=== PATIENT | male | born 1935 | race Caucasian/White ===

== ENCOUNTER 2024-08-03 13:47 | Observation (INO) | payer OTHER, SELFPAY ==
[2024-08-03] VITALS (9 sets, daily range): BP systolic 130–181; BP diastolic 69–97; BMI 25.2; BMI 25.9
[2024-08-03 10:09] LABS: Glucose - Point of Care 137 mg/dl (70-99)
--- NOTE | 2024-08-03 10:35 | PTCARENOTE ---
Pt came to ER with c/o B/L hand numbness, Right Facial numbness, expressive aphasia and Right facial droop. Symptoms started around 0830 this morning at home while making breakfast. Right facial droop and expressive aphasia have resolved at this
point. Pt remains with B/L hand numbness and Right facial numbness remain. NIH- 2. Stroke alert called at 1035. Neurology bedside in CT Scan. Will continue to monitor.
--- NOTE | 2024-08-03 10:39 | ED.CVA ---
History of Present Illness
General
Chief Complaint: CVA/TIA Symptoms
Source: patient and family
Exam Limitations: none
Time Seen by Provider: 08/03/24 10:23
Nursing documentation reviewed up to this point in time: agreed with
Onset of Stroke Symptoms
Onset of symptoms known: Yes
Date of onset of symptoms: 08/03/24
Time of onset of symptoms: 09:00
History of Present Illness
History of Present Illness:
89-year-old male past medical history of heart disease status post multiple stents currently on Plavix presenting to the emergency department today with concerns of right arm weakness and numbness as well as right-sided facial weakness and numbness
that started abruptly with obvious preparing breakfast over the past hour and a half. Also has had some ongoing expressive aphasia. He claims this is still ongoing though his symptoms of his face and right arm have improved significantly.
Past History
Past History
ED Past Medical History: CAD, HTN and Other (Spinal stenosis)
ED Past Surgical History: Cardiac and Urological
Social History
Tobacco: Non-smoker
Living: with family
Employment: Retired
Family History
Family History: Other (Noncontributory)
Review of Systems
Review of Systems
Allergies reviewed?: Yes
All Other Systems: ROS reviewed and negative except as documented in HPI and ROS
Phy Exam
Physical Exam
Physical Exam:
GENERAL: Alert , in no apparent distress
EYE: pupils equal and reactive
NECK: Supple, no significant adenopathy.
ENT: o/p clr, mmm.
CARDIAC: Regular rate and rhythm .
LUNGS: Clear breath sounds bilaterally, no acute respiratory distress, no wheezes/rales/rhonchi
ABDOMEN: Soft, without focal tenderness, no r/g, no cvat
NEUROLOGICAL: Alert and oriented, no focal neuro deficits 5-5 upper and lower extremity strength normal sensation with palpating bilaterally normal finger-nose and [id number]. Patient claims that he has had some difficulty finding words
intermittently during my assessment though he has been fluent with speech.
SKIN: Warm and dry, skin intact.
MUSCULOSKELETAL: No edema, well perfused.
PSYCH: Normal and appropriate interaction.
Course
Orders/Labs/Results
Orders:
Orders
08/03/24 10:36
CT HEAD STROKE ALERT W/o Cont Urgent
Comment:
Reason For Exam: expressive aphasia, right arm weakness
Bedside Glucose- Treatment ONCE
Cardiac Monitoring- Treatment ONCE
08/03/24 10:37
Electrocardiogram (*1) Stat
Reason for Study: Other
Other Reason for Exam: neuro symptoms
EKG- Treatment ONCE
08/03/24 10:44
Complete Blood Count/With Diff Urgent
Comprehensive Metabolic Panel Urgent
PTT Urgent
Prothrombin Time Urgent
Troponin I Urgent
08/03/24 10:48
CT Head & Neck Angio W/wo IV Urgent
Comment:
Reason For Exam: right weakness, expressive aphasia
08/03/24 11:40
Aspirin Chewable [Low Strength Aspirin] 324 mg PO NOW STA
08/03/24 11:47
Aspirin Chewable [Low Strength Aspirin] 324 mg .ROUTE .STK-MED ONE
Abnormal Lab Results
08/03/24 08/03/24
10:08 10:44
WBC 4.5 L 10^3/uL
(4.8-10.8)
RBC 4.54 L 10^6/uL
(4.70-6.10)
Absolute Lymphs (auto) 1.0 L 10^3/uL
(1.2-3.4)
Monocytes % 12.8 H %
(1.7-9.3)
Total Bilirubin 1.4 H mg/dl
(0.2-1.3)
POC Glucose 137 H mg/dl
(70-99)
08/03/24 10:44
08/03/24 10:44
Vital Signs
Initial and Last Documented VS:
Initial Vital Signs
Temp Pulse Resp BP Pulse Ox
97.8 F 86 16 155/91 97
08/03/24 10:02 08/03/24 10:02 08/03/24 10:02 08/03/24 10:02 08/03/24 10:02
Last Documented Vital Signs
Temp Pulse Resp BP Pulse Ox
97.8 F 61 14 178/89 98
08/03/24 10:02 08/03/24 12:15 08/03/24 12:15 08/03/24 12:00 08/03/24 12:15
MDM/Problems Addressed
MDM/Problems Addressed:
89-year-old male presenting to the emergency department today with concerns of expressive aphasia right-sided facial numbness weakness as well as right upper extremity numbness and weakness. Numbness and weakness to the face and right arm have
improved over the past hour but has had ongoing expressive aphasia. No objective findings on examination other than occasional word finding issues. Stroke alert was called concerning ongoing symptoms. Here symptoms further improving labs
unremarkable EKG nonemergent CT and CT angiogram without emergent findings. Case seen by neurology recommending MRI, echo increasing Lipitor to 40 and 21 days of aspirin. Admitted in stable condition.
*Critical Care Note
Total Time (30-74mins, 75-104mins- exclusive of procedures): Not Applicable
ED Attending Note
-
Portions of this chart may have been created with voice recognition software.� Occasional wrong word or��sound alike� substitutions may have occurred due to the inherent limitations of voice recognition software.
Discharge Plan
Departure
Patient Disposition: Admit
Date of Disposition: 08/03/24
Time of Disposition: 12:34
Admit to: Telemetry
Admit to doctor: Michelle
Presentation/result/management discussed w/ accepting MD/DO: Hospitalist
Patient with high blood pressure during this ER visit?: No
Condition: Good
Covid-19: Not Applicable
Discharge Problem:
Right arm weakness, Expressive aphasia
Prescriptions:
No Action
meclizine 12.5 MG tablet
12.5 mg PO DAILYPRN PRN (Reason: vertigo)
clopidogrel [Plavix] 75 MG tablet
75 mg PO DAILY
doxazosin 8 MG tablet
8 mg PO QPM
cholecalciferol (vitamin D3) [Vitamin D3] 125 mcg (5,000 unit) Tablet
125 mcg PO BID
metoprolol tartrate 37.5 mg Tablet
37.5 mg PO BID
atorvastatin [Lipitor] 20 mg Tablet
20 mg PO DAILY
polyethylene glycol 3350 [Miralax] 17 gram Powder In Packet
17 g PO DAILYPRN PRN (Reason: constipation)
pantoprazole [Protonix] 20 mg Tablet,Delayed Release (Dr/Ec)
20 mg PO DAILY
methenamine hippurate [Hiprex] 1 gram Tablet
1 g PO QPM
lisinopril 5 mg Tablet
5 mg PO BID
mesalamine [Canasa] 1,000 mg Suppository
1 g NM DAILYPRN PRN (Reason: flare up)
Referrals:
Oriana Dash DO [Family Provider] -
Interventions
Interventions:
*General Assessment Last Done: 08/03/24 10:59
*ED- Fall Risk Assessment Last Done: 08/03/24 10:59
*ED COVID-19 Vaccine History Last Done: 08/03/24 10:59
ED- Pulmonary Assessment Last Done: 08/03/24 11:05
ED- Neurological Assessment Last Done: 08/03/24 11:05
ED- Cardiac Assessment Last Done: 08/03/24 11:05
ED Swallowing Screen Last Done: 08/03/24 11:31
Discharge Date and Time
Print Language: FAROESE
--- NOTE | 2024-08-03 10:50 | CON.NEURO ---
Neuro Assessment/Plan
Assessment
stroke, unable to localize
presenting with RIGHT face/arm weakness/numbness
Exam showing RIGHT face and LEFT arm minor deficits
CTA head/neck no significant stenosis, bilateral carotid plaque,
continue Plavix 75
Increase Lipitor 40 for now
21 days of aspirin 81
gave patient option of admission, tele, MRI, ECHO vs discharge and follow up with cardiology Holter monitoring, though he will be discharged on the same rx unless we find Afib. patient and family with numerous questions regarding treatment duration,
studies and their timing which were answered - the patient and his family eventually chose admission
Consultation
Order
Date of Consultation: 08/03/24
Requesting Provider: Hank Bill
Reason for Consult: Stroke
Subjective/Objective
Subjective Data
Date of Service: August 03, 2024
89-year-old male past medical history of heart disease status post multiple stents currently on Plavix presenting to the emergency department today with concerns of right arm weakness and numbness as well as right-sided facial weakness and numbness
beginning this AM 8:30. symptoms mild, fluctuating, later developed left arm sensory symptoms.
no bloodthinners
Objective Data
Vital Signs
Temp Pulse Resp BP Pulse Ox
36.6 C 86 16 155/91 97
08/03/24 10:02 08/03/24 10:02 08/03/24 10:02 08/03/24 10:02 08/03/24 10:02
Patient Allergies
Penicillins Allergy (Verified 08/03/24 10:05)
Rash
CVA Assessment
Onset of Stroke Symptoms
Onset of symptoms known: Yes
Date of onset of symptoms: 08/03/24
Time of onset of symptoms: 08:30
NIH Stroke Score
Level of Consciousness: 0 - Alert
LOC Questions: 0-Answers both correctly
LOC Commands: 0-Performs both correctly
Best Horizontal Gaze: 0-Normal
Visual Weinstein: 0=Normal, no visual loss
Facial Palsy: 1=Minor paralysis
Motor - Right Arm: 0=No drift 10 seconds
Motor - Left Arm: 0=No drift 10 seconds
Motor - Right Le-No drift 5 seconds
Motor - Left Le-No drift 5 seconds
Limb Ataxia: 0-Absent
Sensation: 1-Mild loss
Best Language: 0-No aphasia
Dysarthria: 0-Normal
Extinction and Inattention: 0-No abnormality
Total Score:: 2
Physical Exam
-
AAOx3, speech clear, language intact
VFF, EOMI, RIGHT NL flattening, decreased pinprick RIGHT face
full strength on MMT, LEFT pronator drift
Decreased pinprick and vibration LEFT upper ext
Medications
-
Home Medications
�Medication �Instructions �Recorded
clopidogrel 75 mg tablet (Plavix) 75 mg PO DAILY 08/13/21
doxazosin 8 mg tablet 8 mg PO QPM 08/13/21
meclizine 12.5 mg tablet 12.5 mg PO DAILYPRN PRN vertigo 08/13/21
cholecalciferol (vitamin D3) 125 125 mcg PO BID 08/03/24
mcg (5,000 unit) tablet (Vitamin
D3)
metoprolol tartrate 37.5 mg tablet 37.5 mg PO BID 08/03/24
[2024-08-03 11:00] LABS: % Basophils 0.4 % (0-2); % Eosinophils 3.5 % (0-6); % Immature Granulocytes 0.2 % (0-0.5); % Lymphocytes 22.5 % (20.5-51.1); % Monocytes 12.8 % (1.7-9.3); % Neutrophils 60.6 % (42.2-75.2); Absolute Eosinophils 0.2 10^3/uL (0-0.7); Absolute Monocytes 0.6 10^3/uL (0.1-0.6); Absolute Neutrophils 2.7 10^3/uL (1.4-6.5); Hematocrit 40.9 % (39.0-52.0); Hemoglobin 13.8 g/dL (13.0-18.0); Mean Corp Hgb Conc. 33.7 g/dL (33.0-37.0); Mean Corpuscular Hgb 30.4 pg (27.0-31.0); Mean Corpuscular Volume 90.1 fL (80.0-94.0); Mean Platelet Volume 9.8 fL (7.4-10.4); Nucleated Red Blood Cells % 0 % (-); Platelet Count 159 10^3/uL (130-400); Red Blood Cell Count 4.54 10^6/uL (4.70-6.10); Red Cell Dist. Width 13.7 % (11.5-14.5); White Blood Cell Count 4.5 10^3/uL (4.8-10.8)
[2024-08-03 11:05] LABS: PT 13.7 Sec (11.4-14.6)
[2024-08-03 11:06] LABS: APTT 25.7 Sec (23.4-35.0)
[2024-08-03 11:16] LABS: ALT (SGPT) 22 U/L (0-50); AST (SGOT) 25 U/L (17-59); Albumin 3.8 g/dl (3.5-5.0); Alkaline Phosphatase 95 U/L (38-126); Blood Urea Nitrogen 20 mg/dl (9-20); Calcium 9.4 mg/dl (8.4-10.2); Carbon Dioxide 29 mmol/L (22-30); Chloride 107 mmol/L (98-107); Estimated Creatinine Clearance 46 ml/min; Glucose 85 mg/dl (70-99); Sodium 141 mmol/L (135-145); Total Bilirubin 1.4 mg/dl (0.2-1.3); Total Protein 6.8 g/dl (6.3-8.2); eGFR > 60.00
[2024-08-03 11:26] LABS: Troponin I < 0.012 ng/ml
[2024-08-03] MEDS: LOW STRENGTH ASPIRIN 324 MG PO (11:51)
--- NOTE | 2024-08-03 12:59 | HPS.HSE ---
Family Physician
-
Family Physician: Oriana Dash DO
Chief Complaint
-
Right Arm and Facial Numbness
History of Present Illness
Patient is am 89 y/o male past medical history of heart block s/p pacemaker, coronary artery disease s/p stent, hypertension, hyperlipidemia, BPH and ulcerative colitis who presents with right arm and facial numbness. Patient repots while making his
breakfast this morning he developed significant right arm numbness to the point that he could not use his utensils. He reports associated right facial numbness. His symptoms persisted and he called his son, at which time he realized he was also
having trouble with his speech. He reports knowing the words but being able to say them out loud. Upon my evaluation he notes his face still seems a little numb but much improved compared to earlier. He reports prior similar episode about a year
ago at which time he was hospitalized at [facility] for several days. Patient reports another episode at few months after that for which he did not seek medical treatment.
Medical History
Past Medical History
Past Medical History: Reports Other
Additional Past Medical History:
Heart Block s/p Pacemaker
Coronary Artery Disease s/p Stent
Essential Hypertension
Hyperlipidemia
BPH
GERD
Spinal Stenosis
Ulcerative Colitis
Past Surgical History: Reports Other
Additional Past Surgical History:
Cardiac Stents
Bilateral Cataracts
Social History
Tobacco: Former Smoker
Alcohol: None
Living: Alone
Family History
Family History: Not pertinent
Allergies / Home Medications
Allergies reflects when Allergies were last updated in [facility].
Home Medications with original date entered in [facility]
Allergy/Medication List:
Allergies
Allergy/AdvReac Type Severity Reaction Status Date / Time
Penicillins Allergy Rash Verified 08/03/24 10:05
Home Medications
clopidogrel 75 mg tablet (Plavix) 75 mg PO DAILY 08/13/21
doxazosin 8 mg tablet 8 mg PO QPM 08/13/21
meclizine 12.5 mg tablet 12.5 mg PO DAILYPRN PRN vertigo 08/13/21
atorvastatin 20 mg tablet (Lipitor) 20 mg PO DAILY 08/03/24
cholecalciferol (vitamin D3) 125 mcg (5,000 unit) tablet (Vitamin D3) 125 mcg PO BID 08/03/24
lisinopril 5 mg tablet 5 mg PO BID 08/03/24
mesalamine 1,000 mg rectal suppository (Canasa) 1 g IN DAILYPRN PRN flare up 08/03/24
methenamine hippurate 1 gram tablet 1 g PO QPM 08/03/24
metoprolol tartrate 37.5 mg tablet 37.5 mg PO BID 08/03/24
pantoprazole 20 mg tablet,delayed release (Protonix) 20 mg PO DAILY 08/03/24
polyethylene glycol 3350 17 gram oral powder packet (Miralax) 17 g PO DAILYPRN PRN constipation 08/03/24
Review of Systems
-
A 12 point ROS was completed and negative except as noted: Yes
Constitutional: Denies Fever or Chills
Respiratory: Denies Cough or Trouble Breathing
Cardiac: Denies Chest Pain or Palpitations
Physical Exam
Vital Signs
Vital Signs
Temp Pulse Resp BP Pulse Ox
97.8 F 61 14 178/89 98
08/03/24 10:02 08/03/24 12:15 08/03/24 12:15 08/03/24 12:00 08/03/24 12:15
Physical Exam
General: Comfortable and Conversant
HEENT: Anicteric and Moist mucous membranes
Respiratory: Clear and Non Labored Respirations
Cardiac: S1/S2 and Regular Rhythm
GI: Soft and Non Tender
Rectal: Deferred by Provider
Musculoskeletal: No Clubbing and No Cyanosis
Skin: Warm and Dry
Neuro: Awake, Alert, Oriented and No Motor Deficits; No Slurred Speech
Psych: Calm
Laboratory Results
-
08/03/24 10:44
08/03/24 10:44
Laboratory Results
PT 13.7 Sec (11.4-14.6) 08/03/24 10:44
INR 1.00 08/03/24 10:44
APTT 25.7 Sec (23.4-35.0) 08/03/24 10:44
Total Bilirubin 1.4 mg/dl (0.2-1.3) H 08/03/24 10:44
AST 25 U/L (17-59) 08/03/24 10:44
ALT 22 U/L (0-50) 08/03/24 10:44
Alkaline Phosphatase 95 U/L (38-126) 08/03/24 10:44
Troponin I < 0.012 ng/ml 08/03/24 10:[address]:
1. No large territorial infarct is appreciated.
2. Mild atrophy and small vessel ischemic change.
Head/Neck CTA:
1. No evidence of large vessel occlusion, or arterial dissection.
2. Minimal calcified plaque within each carotid bulb, measurements consistent with less than 50% stenosis on each side.
Data Reviewed
-
CT Scan: Image Personally Visualized and interpreted
Lab Data: Labs Reviewed by me
Impression/Plan
-
Right Arm / Facial Numbness, possible TIA vs CVA
-Appreciate Neurology Consult
-Add Aspirin to patient's usual Plavix
-Increase Lipitor 40mg HS
-Check Brain MRI
-Check Echocardiogram
-Check HgbA1c and Lipid Panel
-Ask ED to interogate pacemaker
Coronary Artery Disease s/p Stent
-Continue Plavix
Essential Hypertension
-Patient notes BP running high at home over the weekend
-Allow for permissive hypertension for 24 hours (SBP<220/120)
-Continue doxazosin, lisinopril metoprolol
Hyperlipidemia
-Continue Lipitor
BPH
-Continue doxazosin
Hx Heart Block s/p Pacemaker
DVT proph: SCDs
Code Status: Full Code
--- NOTE | 2024-08-03 13:16 | W.PN.UPDATE ---
Update Note
Progress Note Update
This is an addendum to the H&P written by Leydi Alvarenga on 08/03/2024.� Patient seen and examined independently with PA.
89-year-old male past medical history of heart block status post permanent pacemaker, right bundle branch block, CAD status post stent, hypertension, hyperlipidemia, BPH, lumbar spinal stenosis, ulcerative colitis, presenting with right face and arm
weakness and numbness starting this morning.� Later developed left arm sensory symptoms. Has had similar episodes before.�
CTA head and neck shows no acute large vessel occlusion.� Patient has minimal calcified plaque within carotid bulbs bilaterally less than 50% stenosis.
Patient with likely CVA.� Check A1c and lipid panel.� Continue Plavix and add aspirin.� Lipitor to be increased to 40 mg.� Check MRI brain, echocardiogram. Interrogate pacemaker. Neurology following.
[2024-08-03] MEDS: HIPREX 1 GRAM PO (17:25)
[2024-08-03] MEDS: CARDURA 8 MG PO (17:25)
[2024-08-03] MEDS: LIPITOR 40 MG PO (17:25)
--- NOTE | 2024-08-03 17:41 | PTCARENOTE ---
Received pt from ED. AAOx3. VSS. Ambulatory to bed with stand by assistance. Family members at bedside. No complaints at this time, call bragg within reach.
[2024-08-03] MEDS: VITAMIN D3 (cholecalciferol) 125 MCG PO (20:13)
[2024-08-03] MEDS: LOPRESSOR 37.5 MG PO (20:13)
[2024-08-04] VITALS (11 sets, daily range): BP systolic 101–182; BP diastolic 55–105; PULSE 73; O2SAT 97
[2024-08-04 07:50] LABS: Hematocrit 41.8 % (39.0-52.0); Hemoglobin 14.4 g/dL (13.0-18.0); Mean Corp Hgb Conc. 34.4 g/dL (33.0-37.0); Mean Corpuscular Hgb 30.4 pg (27.0-31.0); Mean Corpuscular Volume 88.2 fL (80.0-94.0); Mean Platelet Volume 9.7 fL (7.4-10.4); Platelet Count 158 10^3/uL (130-400); Red Blood Cell Count 4.74 10^6/uL (4.70-6.10); Red Cell Dist. Width 13.4 % (11.5-14.5); White Blood Cell Count 5.9 10^3/uL (4.8-10.8)
[2024-08-04 07:51] LABS: Blood Urea Nitrogen 18 mg/dl (9-20); Calcium 9.7 mg/dl (8.4-10.2); Carbon Dioxide 23 mmol/L (22-30); Chloride 108 mmol/L (98-107); Estimated Creatinine Clearance 63 ml/min; Glucose 94 mg/dl (70-99); HDL Cholesterol 36 mg/dl; LDL Cholesterol, Calculated 45 mg/dl; Magnesium 1.9 mg/dl (1.6-2.3); Potassium 4.1 mmol/L (3.5-5.1); Sodium 142 mmol/L (135-145); Total Cholesterol 95 mg/dl (50-199); Triglyceride 73 mg/dl (10-149); Very Low Density Lipoprotein 14 mg/dl (0-30); eGFR > 60.00
[2024-08-04 07:58] LABS: VerifyNow Aspirin 489 ARU
[2024-08-04 08:03] LABS: VerifyNow PRU 156 PRU (180-376)
--- NOTE | 2024-08-04 08:25 | W.PN.HOSP.TC ---
Addendum entered and electronically signed by Yury Coelho MD 08/04/24 21:58:
Attending Addendum-
I saw and evaluated the patient. I reviewed the resident�s note and agree with findings and plan as documented in the resident�s note. Sub: Complains of VELEZ. Staets that vision has improved. Denies w/n/t CP palps SOB. Seen with daughter present. Full
12 point ROS reviewed and negative except as documented Exam: Vitals reviewed in chart GEN-NAD heart RRR lungs clear abd soft LE no omaira Neuro AAO x 3 MS 08/29 speech fluent no cerebellar deficits sensation intact
Plan:
#TIA
-Appreciate Neurology Consult
-Add Aspirin x 21 days to patient's usual Plavix
-would continue Lipitor 20mg HS
-08/04-Brain MRI-No acute intracranial abnormality noted. Moderate atrophy with sequelae of mild small vessel ischemic disease.
-Check Echocardiogram
-maintain normotension
-PT/OT/Speech ->home health
#Coronary Artery Disease s/p Stent
-Continue Plavix and now asa
#Essential Hypertension
- Patient notes BP running extremely high at home over the weekend with associated CP and VELEZ
- maintain normotension
- c/s cards for eval - patient well known to them
- Continue doxazosin, lisinopril metoprolol
#Hyperlipidemia
-Continue Lipitor
# BPH
-Continue doxazosin
#Hx Heart Block s/p Pacemaker- cards c/s to interrogate
#Ulcerative Colitis
- cont mesalamine
DVT proph: SCDs
Code Status: Full Code d/w POA
ACP
Patient consented to discuss, was with daughter and GD, time spent explanation of advance directives, changes in health status, patient�s health care wishes if the patient becomes unable to make health decisions, goals of care, code status, and
prognosis, has advanced directive 'Gerri can pull the plug if she wants'- 16 minutes
Time spent coordinating care, review of plan of care with resident, personally reviewed previous records in EMR, med rec, labs, radiology, d/w nursing, family total time documented is exclusive of any additional time listed that was spent in advance
care planning discussion -�53 minutes
Original Note:
Today's Communication/Plan
-
Neuro checks
Continue newly added asp
Assessment / Plan
Assessment / Plan
89-year-old male with history of heart block status post pacemaker (2021), CAD s/p stent x2 (2007), hypertension, hyperlipidemia, ulcerative colitis, GI bleed, who presented with TIA.
TIA:
Aphasia, dysarthria, right arm and face numbness/weakness noted over 8 AM yesterday while he was making breakfast at home
Symptoms now resolved today and patient confirms return to baseline function. NIH SS = 0 today
-Appreciate Neurology Consult, Aspirin added to patient's usual Plavix, Lipitor increased to 40mg HS
-For echo and Brain MRI today
-Lipid Panel well controlled on 20mg Atorvastatin. HbA1c pending
-PT/OT on board
-ST recs regular diet
Coronary Artery Disease s/p Stent
-Continue Plavix
Essential Hypertension
-Patient notes BP running high at home over the weekend
-Allowed for permissive hypertension for 24 hours (SBP<220/120).
-Continue doxazosin, lisinopril metoprolol
Hyperlipidemia
-Continue Lipitor
BPH
-Continue doxazosin
Hx of ulcerative colitis:
Hx of GIB:
-Will monitor for bloody/black stool and folllow H&H
Hx Heart Block s/p Pacemaker
Vertigo:
No current symptoms. Meclizine PRN
DVT proph: SCDs
Code Status: Full Code
Anticipated Discharge: Today
Subjective/Interval History
-
Date of Service: August 04, 2024
Pt reports resolution of all symptoms and return to baseline. Chronic mild numbness on dorsal right middle finger which he attributes to his arthritis.
Reported some pain in bilateral axilla last night, now resolved
Objective Data
-
Labs:
Laboratory Results
08/04/24
07:00
WBC 5.9
Hgb 14.4
Hct 41.8
Plt Count 158
Sodium 142
Potassium 4.1
Chloride 108 H
Carbon Dioxide 23
BUN 18
Creatinine 0.8
Glucose 94
Calcium 9.7
Vital Signs:
Vital Signs
Temp Pulse Resp BP Pulse Ox
97.8 F 65 16 173/83 97
08/04/24 07:00 08/04/24 07:00 08/04/24 07:00 08/04/24 07:00 08/04/24 07:00
I&O
08/03/24 08/04/24 08/05/24
06:59 06:59 06:59
Intake Total 420 / 420
Balance 420 / 420
Review of Systems
-
History Source: Patient
EENT: Reports Other (No difficulty swallowing); Denies Blurry Vision or Decreased Vision
Respiratory: Denies Trouble Breathing
Cardiac: Denies Chest Pain
Abdomen/GI: Denies Abdominal Pain, Nausea, Vomiting, Diarrhea or Constipated
Genitourinary: Denies Dysuria or Difficulty Voiding
Neuro: Reports Other (no speech difficulty); Denies Dizzy, Weakness or Numbness
Physical Exam
-
General: Well Developed, Well Nourished, No Apparent Distress and Comfortable
HEENT: Normocephalic, Atraumatic and Moist Mucous Membranes
Respiratory: Clear to Auscultation and Non Labored Respirations; Negative Wheezes, Rales, Rhonchi or Crackles
Cardiac: Regular Rhythm and S1/S2; Negative Murmur, Rub or Calf Tenderness
GI: Soft, Nontender, Nondistended and Normal Bowel Sounds
Genito-urinary: No Costovertebral Tender
Musculoskeletal: No Clubbing, No Cyanosis and No Edema
Skin: Warm and Dry
Neuro: Awake, Alert, Oriented, AO x 3, No Motor Deficits and No Sensory Deficits; Negative Tremors, Slurred Speech or Facial Droop
Psych: Calm
[2024-08-04 09:02] LABS: Glycohemoglobin (HgbA1c) 5.8 % (4.0-5.6)
[2024-08-04] MEDS: LOPRESSOR 37.5 MG PO ×2 (09:06→19:54)
[2024-08-04] MEDS: PLAVIX 75 MG PO (09:07)
[2024-08-04] MEDS: ZESTRIL 5 MG PO ×2 (09:07→19:55)
[2024-08-04] MEDS: VITAMIN D3 (cholecalciferol) 125 MCG PO ×2 (09:08→19:55)
[2024-08-04] MEDS: LOW STRENGTH ASPIRIN 81 MG PO (09:08)
[2024-08-04] MEDS: NSS 500 IV (12:21)
[2024-08-04] MEDS: PROTONIX 40 MG PO (12:25)
--- NOTE | 2024-08-04 17:04 | CM ---
Alert awake oriented patient who lives alone in a 2 story home with 1 step to enter and bed and bathroom on first floor. He is independent in driving and in all activities of daily living.He was offered VN he declined need.He uses a walker .[facility]
letter given explained . Copy on chart . Pt did not sign [facility] letter.
No VN hx / No SNF history
Pharmacy [facility]
PCP DR Duke
PLAN Home Declined VN
[2024-08-04] MEDS: CARDURA 8 MG PO (17:10)
[2024-08-04] MEDS: HIPREX 1 GRAM PO (17:10)
[2024-08-04] MEDS: LIPITOR 40 MG PO (17:10)
[2024-08-05 03:20] VITALS: BP 143/79
--- NOTE | 2024-08-05 07:36 | W.PN.HOSP.TC ---
Addendum entered and electronically signed by Yury Coelho MD 08/05/24 20:28:
Attending Addendum-
I saw and evaluated the patient. I reviewed the resident�s note and agree with findings and plan as documented in the resident�s note. Sub: No complaints. Feels great. Denies w/n/t CP palps SOB. Seen with granddaughter present. Full 12 point ROS
reviewed and negative except as documented Exam: Vitals reviewed in chart GEN-NAD heart RRR lungs clear abd soft LE no omaira Neuro AAO x 3 MS 08/29 speech fluent no cerebellar deficits sensation intact
Plan:
#TIA
-Appreciate Neurology Consult
-add Aspirin x 21 days to patient's usual Plavix
-would continue Lipitor 20mg HS
-08/04-Brain MRI-No acute intracranial abnormality noted. Moderate atrophy with sequelae of mild small vessel ischemic disease.
-echocardiogram-reduced ef to 50%
-maintain normotension
-PT/OT/Speech ->home health
#Coronary Artery Disease s/p Stent
-Continue Plavix and now asa
#Essential Hypertension
- Patient notes BP running extremely high at home over the weekend with associated CP and VELEZ
- maintain normotension
- cards input appreciated - DC BP meds adjusted
- Continue doxazosin, lisinopril metoprolol
#Hyperlipidemia
-Continue Lipitor
# BPH
-Continue doxazosin
#Hx Heart Block s/p Pacemaker
#Ulcerative Colitis
- cont mesalamine
DVT proph: SCDs
Code Status: Full Code d/w POA
Dispo DC home today
Time spent coordinating care, DC planning, review of DC plan of care with resident, transition of care, review of records, med rec/scripts sent electronically, consults, notes, d/w consultants, nursing, family, cards, and CM� 34 mins
Original Note:
Today's Communication/Plan
-
Okay for DC today
Continue metoprolol and Doxazosin at home dose.
Increase Lisinopril to 10mg am, 5mg pm, and an extra 5mg PRN
Asp+Plavix for DAPT x21 days, continue Plavix only after.
Continue Atorvastatin 20mg
Assessment / Plan
Assessment / Plan
89-year-old male with history of heart block status post pacemaker (2021), CAD s/p stent x2 (2007), hypertension, hyperlipidemia, ulcerative colitis, GI bleed, who presented with TIA.
TIA:
Aphasia, dysarthria, right arm and face numbness/weakness noted over 8 AM yesterday while he was making breakfast at home
Symptoms now resolved and patient confirms baseline function. NIH SS = 0 today
-Appreciate Neurology Consult
-Aspirin added to patient's usual Plavix for 21 days, afterwards Plavix alone.
-MRI No acute intracranial abnormality noted. Moderate atrophy with sequelae of mild small vessel ischemic disease.
-Lipid Panel well controlled on 20mg Atorvastatin. Will continue
-HbA1c mildly elevated at 5.8, can follow up with PCP
-Appreciate PT/OT/ST
-Echo with EF 50%, stage II diastolic dysfunction (likely secondary to uncontrolled HTN), no thrombus seen.
Coronary Artery Disease s/p Stent:
-Continue Plavix, now has Asp added for 21 days
Essential Hypertension
-Patient notes BP running high at home over the weekend. Labile BP noted while on admission
-Allowed for permissive hypertension for 24 hours (SBP<220/120). Now aim to maintain normotension
-appreciate cards recs: Upon discharge, continue doxazosin and metoprolol. Increase lisinopril to 10mg in AM, 5mg at PM. PRN Lisinopril 5mg.
Hyperlipidemia
-Continue Lipitor at home dose 20mg given well-controlled/goal lipids
BPH
-Continue doxazosin
Hx of ulcerative colitis: meselamine
Hx of GIB:
-Will monitor for bloody/black stool and follow H&H
Hx Heart Block: s/p Pacemaker
Vertigo:
No current symptoms. Meclizine PRN
DVT proph: SCDs
Code Status: Full Code
Anticipated Discharge: Today
Subjective/Interval History
-
Date of Service: August 05, 2024
No acute events overnight
Objective Data
-
Labs:
Laboratory Results
08/05/24
06:40
WBC Pending
Hgb Pending
Hct Pending
Plt Count Pending
Sodium Pending
Potassium Pending
Chloride Pending
Carbon Dioxide Pending
BUN Pending
Creatinine Pending
Glucose Pending
Calcium Pending
Vital Signs:
Vital Signs
Temp Pulse Resp BP Pulse Ox
97.8 F 64 16 143/79 95
08/05/24 03:20 08/05/24 03:20 08/05/24 03:20 08/05/24 03:20 08/05/24 03:20
I&O
08/04/24 08/05/24 08/06/24
06:59 06:59 06:59
Intake Total 420 / 420
Balance 420 / 420
Review of Systems
-
History Source: Patient
Respiratory: Denies Trouble Breathing
Cardiac: Denies Chest Pain
Abdomen/GI: Denies Abdominal Pain, Nausea, Vomiting, Diarrhea or Constipated
Genitourinary: Reports Frequency; Denies Dysuria or Difficulty Voiding
Neuro: Reports Other (denies speech difficulty); Denies Weakness or Numbness
Physical Exam
-
General: Well Developed, Well Nourished, No Apparent Distress and Comfortable
HEENT: Normocephalic, Atraumatic and Moist Mucous Membranes
Respiratory: Clear to Auscultation and Non Labored Respirations; Negative Wheezes, Rales, Rhonchi or Crackles
Cardiac: Regular Rhythm and S1/S2; Negative Murmur, Rub or Calf Tenderness
GI: Soft, Nontender and Nondistended
Genito-urinary: No Costovertebral Tender
Musculoskeletal: No Clubbing, No Cyanosis and No Edema
Neuro: Awake, Alert and Oriented
Psych: Calm
[2024-08-05 08:12] VITALS: BP 172/89
[2024-08-05] MEDS: ZESTRIL 5 MG PO ×2 (08:13→11:59)
[2024-08-05] MEDS: LOW STRENGTH ASPIRIN 81 MG PO (08:13)
[2024-08-05] MEDS: PROTONIX 40 MG PO (08:13)
[2024-08-05] MEDS: LOPRESSOR 37.5 MG PO (08:13)
[2024-08-05] MEDS: PLAVIX 75 MG PO (08:14)
[2024-08-05] MEDS: VITAMIN D3 (cholecalciferol) 125 MCG PO (08:14)
[2024-08-05 08:17] LABS: Hematocrit 38.4 % (39.0-52.0); Hemoglobin 13.4 g/dL (13.0-18.0); Mean Corp Hgb Conc. 34.9 g/dL (33.0-37.0); Mean Corpuscular Hgb 30.8 pg (27.0-31.0); Mean Corpuscular Volume 88.3 fL (80.0-94.0); Mean Platelet Volume 10.1 fL (7.4-10.4); Platelet Count 148 10^3/uL (130-400); Red Blood Cell Count 4.35 10^6/uL (4.70-6.10); Red Cell Dist. Width 13.4 % (11.5-14.5); White Blood Cell Count 4.8 10^3/uL (4.8-10.8)
[2024-08-05 08:43] LABS: Blood Urea Nitrogen 16 mg/dl (9-20); Calcium 9.1 mg/dl (8.4-10.2); Carbon Dioxide 24 mmol/L (22-30); Chloride 108 mmol/L (98-107); Estimated Creatinine Clearance 63 ml/min; Glucose 81 mg/dl (70-99); Potassium 3.8 mmol/L (3.5-5.1); Sodium 140 mmol/L (135-145); eGFR > 60.00
--- NOTE | 2024-08-05 11:26 | CON.CAR ---
Addendum entered and electronically signed by Chava Juares MD 08/05/24 12:27:
I saw and examined the patient.
The Clay Plant Treater's note was reviewed and I agree with the note.
Comment:
GEN: No distress, awake, Ox3
HEENT: supple, anicteric, mmm
LUNGS: CTA, no wheezes/rales
CV: Reg, S1/S2, 1/6 syst LSB, no gallop
ABD: soft, BS+, NT/ND
EXT: No edema
NEURO: Gross non-focal
SKIN: No rash
Plan:
89-year-old male well-known to me with past medical history of coronary artery disease status post PCI, permanent pacemaker, hypertension, hyperlipidemia, orthostasis, BPH and TIA with history of GI bleeding presents with episodes of dysarthria and
right arm and facial numbness. MRI of the brain revealed no acute stroke and CT scan of the head and neck revealed no significant carotid artery disease. Echo has a preserved ejection fraction with no significant valve disease. Symptoms have
improved. His blood pressure has been elevated recently at home and has been very labile. In the past he has also had orthostasis though.
I reviewed his echocardiogram which is stable.
We will continue his metoprolol 37.5 mg p.o. twice daily. We will increase the lisinopril to 10 mg in the a.m. and 5 mg in the p.m. He can take an extra 5 mg as needed.
He will also continue the Cardura 8 mg daily.
Continue aspirin, Plavix, and atorvastatin.
Stable for discharge from cardiology standpoint
Original Note:
Consultation
Consultation Request
Date/Time Consultation Requested: 08/05/2024
Date/Time Consultation Performed: 08/05/2024
Requesting Provider: Dr. Boogie
Performing Provider: Анна Robert PA-C for Dr. Juares
Reason for Consultation: Labile HTN
Medical History
-
History of Present Illness:
HPI: Raghu is an 89 year old male with PMH of CAD w/ remote stenting, PPM placement, HTN, HLD, BPH, TIA, and GIB. Presented to [facility] ER for evaluation of R arm and facial numbness as well as dysarthria. Given concern for CVA, came to ER
for evaluation. CT of head was without acute abnormality. He was admitted and seen by neurology. Brain MRI revealed no acute abnormality. Started on DAPT with aspirin and plavix. Echo completed and overall appeared stable. Symptomatically he
improved and in AM 08/05 reports he feels back to baseline. He has been having elevated BPs this admission and notes BPs have intermittently been elevated at home as well, at times into the 190s systolic. With elevated BPs he has noted headaches and
feels 'off'. Cardiology consulted for evaluation. BP remains elevated, however does have h/o orthostasis, so have been cautious w/ medication adjustments historically. PPM check revealed no afib. As above, notes he feels well at this time and has no
complaints.
PMH:
CAD
DC w/ LAD BMS 2007
s/p DC PPM 08/13/2021
HTN
HLD
BPH
Lumbar spinal stenosis
h/o TIA
h/o GIB
Past Medical History
Past Medical History: Other (In HPI)
Social History
Tobacco: Former Smoker
Alcohol: None
Drug: None
Personal:
Living: With Family
Employment: Retired
Family History
Family History: Reviewed & Not Pertinent
Allergies / Home Medications
Allergy/AdvReac Type Severity Reaction Status Date / Time
Penicillins Allergy Rash Verified 08/03/24 10:05
�Medication �Instructions �Recorded �Confirmed �Type
clopidogrel 75 mg tablet (Plavix) 75 mg PO DAILY 08/13/21 08/03/24 History
doxazosin 8 mg tablet 8 mg PO QPM 08/13/21 08/03/24 History
meclizine 12.5 mg tablet 12.5 mg PO DAILYPRN PRN vertigo 08/13/21 08/03/24 History
atorvastatin 20 mg tablet (Lipitor) 20 mg PO DAILY 08/03/24 08/03/24 History
cholecalciferol (vitamin D3) 125 125 mcg PO BID 08/03/24 08/03/24 History
mcg (5,000 unit) tablet (Vitamin
D3)
lisinopril 5 mg tablet 5 mg PO BID 08/03/24 08/03/24 History
mesalamine 1,000 mg rectal 1 g MI DAILYPRN PRN flare up 08/03/24 08/03/24 History
suppository (Canasa)
methenamine hippurate 1 gram tablet 1 g PO QPM 08/03/24 08/03/24 History
metoprolol tartrate 37.5 mg tablet 37.5 mg PO BID 08/03/24 08/03/24 History
pantoprazole 20 mg tablet,delayed 20 mg PO DAILY 08/03/24 08/03/24 History
release (Protonix)
polyethylene glycol 3350 17 gram 17 g PO DAILYPRN PRN constipation 08/03/24 08/03/24 History
oral powder packet (Miralax)
Review of Systems
-
History Source: Patient
All other systems: Negative unless noted
Physical Exam
Vital Signs
Temp Pulse Resp BP Pulse Ox
97.9 F 68 18 172/89 98
08/05/24 08:12 08/05/24 08:13 08/05/24 08:12 08/05/24 08:13 08/05/24 10:36
Lab Results
08/05/24 06:40
08/05/24 06:40
Troponin I < 0.012 ng/ml 08/03/24 10:44
Physical Exam
General: Well Developed, Well Nourished and No Apparent Distress
HEENT: Normocephalic and Moist Mucous Membranes
Respiratory: Clear and Non Labored Respirations
Cardiac: S1/S2 and Regular Rhythm
Musculoskeletal: No Clubbing, No Cyanosis and No Edema
Skin: Warm and Dry
Neuro: AO x 3 and Nonfocal/Grossly Intact
Psych: Calm
Impression / Plan
-
PCP: Dr. Dash
Pedicab Driver: Dr. Juares
Impression:
Presented w/ R weakness, dysarthria
TIA
Uncontrolled HTN
CAD
DC w/ LAD BMS 2007
s/p DC PPM 08/13/2021
HLD
BPH
Lumbar spinal stenosis
h/o TIA
h/o GIB
Echo 06/27/2021: EF 62%, mild MR, stage I diastolic dysfunction, mild MR, trace AR, mild TR, estimated PAP 25 mmHg
Echo 08/04/2024: EF 50%, mild cLVH, stage II diastolic dysfunction, mild MR, aortic sclerosis without stenosis, mild AR, trace TR
Plan:
-Presented with R sided weakness and difficulty speaking. MRI of brain w/ no evidenc of acute stroke. Managing as TIA.
-Continue aspirin and plavix for 21 days, then resume plavix alone.
-Continue lipitor 20mg daily. LDL 45
-V paced on EKG. No evidence of afib on device check.
-BPs have been elevated at home and during admission. Continue lisinopril, but will increase dose to 10mg in AM, 5mg in PM. Continue metoprolol tartrate 37.5mg BID.
-He does have h/o orthostasis, so will need to follow BPs closely at home w/ increasing lisinopril.
-Echo 08/04 with EF 50% and mild MR as noted above.
-Will arrange cardiology follow up.
HPI: Raghu is an 89 year old male with PMH of CAD w/ remote stenting, PPM placement, HTN, HLD, BPH, TIA, and GIB. Presented to [facility] ER for evaluation of R arm and facial numbness as well as dysarthria. Given concern for CVA, came to ER
for evaluation. CT of head was without acute abnormality. He was admitted and seen by neurology. Brain MRI revealed no acute abnormality. Started on DAPT with aspirin and plavix. Echo completed and overall appeared stable. Symptomatically he
improved and in AM 4/11 reports he feels back to baseline. He has been having elevated BPs this admission and notes BPs have intermittently been elevated at home as well, at times into the 190s systolic. With elevated BPs he has noted headaches and
feels 'off'. Cardiology consulted for evaluation. BP remains elevated, however does have h/o orthostasis, so have been cautious w/ medication adjustments historically. PPM check revealed no afib. As above, notes he feels well at this time and has no
complaints.
Data Reviewed
-
EKG: Tracing Personally Visualized and interpreted
CT Scan: Report Reviewed by me
MRI: Report Reviewed by me
Medical Tests (Nuc Med, Echo etc): Report Reviewed by me
Labs: Labs Reviewed by me
Old Records: Reviewed
[2024-08-05 11:33] VITALS: BP 129/72
[2024-08-05 14:02] VITALS: BP 135/73
--- NOTE | 2024-08-05 15:24 | CM ---
CM reviewed chart, patient seen with granddaughter. Patient for discharge today, declines need for VN. Granddaughter to provide transport home. CM will continue to follow for all discharge planning needs.
Plan; home no needs.
[2024-08-05 15:49] VITALS: BP 160/82
--- NOTE | 2024-08-05 17:12 | W.DCSUMMARY ---
Addendum entered and electronically signed by Yury Coelho MD 08/05/24 20:29:
Read, reviewed, and agree. See same day progress note for additional details.
Kareem Coelho MD
Original Note:
Documented by User: Mackenzie Mcdonald MD, Resident 08/05/24 17:53
Discharge Summary
Discharge Data
Date of Admission: 08/03/24
Date of Discharge: 08/05/24
-
Pending Results: No
Hospital Course
Discharging Physician : Mackenzie Mcdonald MD., Yury Coelho MD.
Disposition : Home
Primary care physician : Oriana Dash DO.
Principal Discharge diagnosis : TIA, essential hypertension
Chronic Discharge diagnosis : heart block status post pacemaker (2021), TIA, CAD s/p stent x2 (2007), essential hypertension, hyperlipidemia, ulcerative colitis, history of GI bleed
Hospital Course :
89-year-old male with above PMH, who presented with TIA. Management was as follows:
TIA:
Pt presented with aphasia, dysarthria, right arm and face numbness/weakness, with known onset time while making breakfast the morning of arrival. Symptoms continuously improved and resolved < 24 hours with return to baseline function. Head CT,
head/neck CTA, MRI brain with no evidence of acute abnormality.
-Aspirin added to patient's usual Plavix, to be continued through 08/23/2024, then continue Plavix alone.
-Lipid Panel well controlled on 20mg Atorvastatin. Continue at home.
-HbA1c mildly elevated at 5.8, outpatient PCP follow up
-Echo with EF 50%, stage II diastolic dysfunction (likely secondary to uncontrolled HTN), no thrombus seen.
-Home Protonix increased from 20mg daily to 40mg daily while on DAPT. To switch back to 20mg daily on 08/19/2024
Essential Hypertension:
-Patient notes elevated BPs few days prior to admission. Labile BP noted while on admission
-At home, continue doxazosin and metoprolol. Increase lisinopril to 10mg in AM, 5mg at PM. Can take added Lisinopril 5mg as needed.
-Outpatient cardiology follow up
Hyperlipidemia:
-Continue Lipitor at home dose 20mg given well-controlled/goal lipids
Other chronic home meds were continued as appropriate.
He remained stable throughout stay and was discharged to home.
Important imaging findings :
Head CT 08/03/24:
1. No large territorial infarct is appreciated.
2. Mild atrophy and small vessel ischemic change.
Head/neck CTA 08/03/24:
1. No evidence of large vessel occlusion, or arterial dissection.
2. Minimal calcified plaque within each carotid bulb, measurements consistent with less than 50% stenosis on each side.
MRI brain without contrast 08/03/24:
No acute intracranial abnormality noted.
Moderate atrophy with sequelae of mild small vessel ischemic disease.
Echocardiogram 08/04/2024:
-Normal left ventricular chamber size. Low normal left ventricular systolic function. LV ejection fraction is 50% by visual estimate.
-Abnormal (paradoxical) septal motion consistent with RV pacemaker.
-Mild concentric left ventricular hypertrophy. Stage II diastolic dysfunction suggestive of abnormal relaxation and increased filling pressures.
-Normal right ventricular systolic function. Pacer wire seen in right ventricle.
-Mild mitral regurgitation.
-Aortic sclerosis without stenosis. Mild aortic regurgitation.
Discharge Plan
-
Patient Disposition: Home (Routine Discharge)
Discharge Diagnosis/Procedures: TIA, uncontrolled essential hypertension
Condition: Good
Diet: Low Sodium
Activity: No restrictions
Driving Restrictions: As prior to admission
Bathing Restrictions: None
Referrals:
Oriana Dash DO [Family Provider] - in less than 1 week
Анна Robert PA-C [Specified Professional Personl] - 08/31/24 12:40 pm (You have a follow up visit with Dr. Juares's PA, Анна Robert, at the [facility] office. Please call with questions.)
Additional Discharge Medication Instructions: Recommend outpatient cardiac holter monitoring.
Take Aspirin 81mg daily through 08/23/2024
Increase your home pantoprazole to 40mg daily through 08/23/2024 (while you are taking Aspirin), then you can switch back to taking 20mg daily
Increase your lisinopril to 10mg in the morning, and 5mg at night. You can take an added 5mg for elevated pressure as needed.
Prescriptions:
New
aspirin 81 mg Tablet,Chewable
81 mg PO DAILY Qty: 19 0RF
lisinopril 10 mg Tablet
10 mg PO DAILY Qty: 30 0RF
lisinopril 5 mg Tablet
5 mg PO DAILY@1999 Qty: 60 0RF
pantoprazole [Protonix] 40 mg tablet,delayed release (DR/EC)
40 mg PO DAILY Qty: 19 0RF
Continued
meclizine 12.5 MG tablet
12.5 mg PO DAILYPRN PRN (Reason: vertigo)
clopidogrel [Plavix] 75 MG tablet
75 mg PO DAILY
doxazosin 8 MG tablet
8 mg PO QPM
cholecalciferol (vitamin D3) [Vitamin D3] 125 mcg (5,000 unit) Tablet
125 mcg PO BID
metoprolol tartrate 37.5 mg Tablet
37.5 mg PO BID
atorvastatin [Lipitor] 20 mg Tablet
20 mg PO DAILY
polyethylene glycol 3350 [Miralax] 17 gram Powder In Packet
17 g PO DAILYPRN PRN (Reason: constipation)
methenamine hippurate 1 gram Tablet
1 g PO QPM
mesalamine [Canasa] 1,000 mg Suppository
1 g MO DAILYPRN PRN (Reason: flare up)
Changed
pantoprazole [Protonix] 20 mg Tablet,Delayed Release (Dr/Ec)
40 mg PO DAILY Qty: 0 0RF
Discontinued
lisinopril 5 mg Tablet
5 mg PO BID
Discharge Orders:
Discharge Patient (As Directed); Ordered 08/05/24
Ordered By: Mackenzie Mcdonald
Discharge Date and Time
Discharge Date/Time: 08/05/24 16:06
Print Language: ITALIAN

Documented by User: Yury Coelho MD 08/05/24 20:26
Discharge Summary
Discharge Data
Date of Admission: 08/03/24
Date of Discharge: 08/05/24
Discharge Plan
-
Patient Disposition: Home (Routine Discharge)
Discharge Diagnosis/Procedures: TIA, uncontrolled essential hypertension
Condition: Good
Diet: Low Sodium
Activity: No restrictions
Driving Restrictions: As prior to admission
Bathing Restrictions: None
Referrals:
Oriana Dash, DO [Family Provider] - in less than 1 week
Анна Robert PA-C [Specified Professional Personl] - 08/31/24 12:40 pm (You have a follow up visit with Dr. Juares's PA, Анна Robert, at the [place] office. Please call with questions.)
Additional Discharge Medication Instructions: Recommend outpatient cardiac holter monitoring.
Take Aspirin 81mg daily through 08/23/2024
Increase your home pantoprazole to 40mg daily through 08/23/2024 (while you are taking Aspirin), then you can switch back to taking 20mg daily
Increase your lisinopril to 10mg in the morning, and 5mg at night. You can take an added 5mg for elevated pressure as needed.
Prescriptions:
New
aspirin 81 mg Tablet,Chewable
81 mg PO DAILY Qty: 19 0RF
lisinopril 10 mg Tablet
10 mg PO DAILY Qty: 30 0RF
lisinopril 5 mg Tablet
5 mg PO DAILY@1999 Qty: 60 0RF
pantoprazole [Protonix] 40 mg tablet,delayed release (DR/EC)
40 mg PO DAILY Qty: 19 0RF
Continued
meclizine 12.5 MG tablet
12.5 mg PO DAILYPRN PRN (Reason: vertigo)
clopidogrel [Plavix] 75 MG tablet
75 mg PO DAILY
doxazosin 8 MG tablet
8 mg PO QPM
cholecalciferol (vitamin D3) [Vitamin D3] 125 mcg (5,000 unit) Tablet
125 mcg PO BID
metoprolol tartrate 37.5 mg Tablet
37.5 mg PO BID
atorvastatin [Lipitor] 20 mg Tablet
20 mg PO DAILY
polyethylene glycol 3350 [Miralax] 17 gram Powder In Packet
17 g PO DAILYPRN PRN (Reason: constipation)
methenamine hippurate 1 gram Tablet
1 g PO QPM
mesalamine [Canasa] 1,000 mg Suppository
1 g MO DAILYPRN PRN (Reason: flare up)
Changed
pantoprazole [Protonix] 20 mg Tablet,Delayed Release (Dr/Ec)
40 mg PO DAILY Qty: 0 0RF
Discontinued
lisinopril 5 mg Tablet
5 mg PO BID
Discharge Orders:
Discharge Patient (As Directed); Ordered 08/05/24
Ordered By: Mackenzie Mcdonald
Discharge Date and Time
Discharge Date/Time: 08/05/24 16:06
Print Language: ITALIAN
== END 2024-08-05 16:06 | disposition home or self-care (01) ==
LOC: 4 EAST ACU 13:47
PROVIDERS: Physician Assistant; Physician Assistant Medical; Student in an Organized Health Care Education/Training Program; ADMITTING PHYSICIAN Hospitalist; ATTENDING PHYSICIAN Family Medicine; CONSULT PHYSICIAN Psychiatry & Neurology Clinical Neurophysiology; EMERGENCY PHYSICIAN Emergency Medicine; FAMILY PHYSICIAN Family Medicine; OTHER PHYSICIAN Internal Medicine Cardiovascular Disease
DX: G45.9 Transient cerebral ischemic attack, unspecified (principal); R47.01 Aphasia; R53.1 Weakness; R20.0 Anesthesia of skin; R29.810 Facial weakness; R51.9 Headache, unspecified; I45.9 Conduction disorder, unspecified; I25.10 Atherosclerotic heart disease of native coronary artery without angina pectoris; I11.9 Hypertensive heart disease without heart failure; I45.10 Unspecified right bundle-branch block; N40.0 Benign prostatic hyperplasia without lower urinary tract symptoms; M48.061 Spinal stenosis, lumbar region without neurogenic claudication; K51.90 Ulcerative colitis, unspecified, without complications; I70.0 Atherosclerosis of aorta; I08.0 Rheumatic disorders of both mitral and aortic valves; G31.9 Degenerative disease of nervous system, unspecified; E78.5 Hyperlipidemia, unspecified; R29.818 Other symptoms and signs involving the nervous system; I25.2 Old myocardial infarction; Z88.0 Allergy status to penicillin; Z95.5 Presence of coronary angioplasty implant and graft; Z79.02 Long term (current) use of antithrombotics/antiplatelets; Z95.0 Presence of cardiac pacemaker; Z87.891 Personal history of nicotine dependence; Z60.2 Problems related to living alone; Z79.899 Other long term (current) drug therapy; Z86.73 Personal history of transient ischemic attack (TIA), and cerebral infarction without residual deficits
CPT/HCPCS: 70450; 70496; 70498; 70551; 80048; 80053; 80061; 82962; 83036; 83735; 84484; 85025; 85027; 85576; 85610; 85730; 92610; 93005; 93306; 97116; 97163; 97167; 99285; G0378; Q9950; Q9967